=== PATIENT | female | born 1980 | race Caucasian/White ===

== ENCOUNTER 2018-12-22 09:45 | Outpatient (RCR) | payer OTHER, MEDICAID, SELFPAY ==
--- NOTE | 2018-11-03 16:30 | PT.OIE ---
Current Diagnoses Sacrococcygeal disorders, not elsewhere classified (11/03/18) Pelvic and perineal pain (11/03/18) Strain of muscle, fascia and tendon of the posterior muscle group at thigh level, right thigh, sequela (11/03/18) Visit Care Team Role Provider Type Carlo Ayers MD Primary Care Provider Non-Staff Specialty: Medical Address: [address] [place], [address] Email: Isabel Fletcher CNM Attending Provider Non-Staff Specialty: Nursing Address: [address] [place], [address] Email: Physical Therapy Initial Evaluation PT-OP-A Visit Information Start: 11/03/18 10:03 Freq: Status: Active Protocol: Document 11/03/18 10:00 AMB (Rec: 11/04/18 16:18 AMB [email or web address]) Out-Patient Physical Therapy Visit Information Visit Information Visit Type Initial Evaluation Visit Start Time 10:00 Visit Stop Time 10:50 Total Visit Minutes 50 Visit Number 1 PT-OP-B Current Condition Start: 11/03/18 10:03 Freq: Status: Active Protocol: Document 11/03/18 10:00 AMB (Rec: 11/04/18 16:18 AMB [email or web address]) Current Condition History of Current Condition Onset Date May 2018 Current Complaints R sided pain with sitting History of Current Condition Ayanna reports that she fell on her side while she was . She ended up needing an emergency because her placenta ruptured , and so wasn't overly concerned about her right sided pain, but it has been present ever since that fall. 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 She points to the pain as being at the ischial tuberosity, worst with bending forward and sitting. Treatment Goals Patient/Caregiver Goals Bend forward to put her baby in the crib without pain. Sit without pain. Return to running. Personal Factors Other Personal Factors That May Effect Pt lives in [place] ( Therapy/Recovery long drive to get to PT). Pt reports long history of neck pain and L shoulder pain with labrum surgery. PT-OP-C Subjective Start: 11/03/18 10:03 Freq: Status: Active Protocol: Document 11/03/18 10:00 AMB (Rec: 11/04/18 16:18 AMB [email or web address]) OP-PT Pain Assessment Pain Assessment Grid Paper Pain Assessment Grid Completed Yes Location Right Sacrum Intensity 7 Scale Used Numeric (1 - 10) Other Pain Alleviating Factors 2/10 at best, 7/10 at worst with seated PT-OP-F Manual Assessment Start: 11/04/18 15:22 Freq: Status: Active Protocol: Document 11/03/18 10:00 AMB (Rec: 11/04/18 15:56 AMB [email or web address]) Manual Assessments Joint Mobility Assessment Joint Mobility Assessment PAs in L4-5-S1 all painful. PT-OP-J Posture/Palpation/Skin Start: 11/03/18 10:03 Freq: Status: Active Protocol: Document 11/03/18 10:00 AMB (Rec: 11/04/18 15:56 AMB [email or web address]) Posture Evaluation Comments Posture Comments In supine R innominant anterior rotated Palpation Assessment Location One Palpation Details Tenderness over bilateral SI joints and sacrum. Pt points to R ischial tuberosity when asked where she has pain but denies pain with palpation. No tenderness over but does have hard lump probably of scar tissue beneath umbilicus. Diastasis recti of 1 finger width below and above umbilicus. PT-OP-K Range of Motion Start: 11/04/18 15:22 Freq: Status: Active Protocol: Document 11/03/18 10:00 AMB (Rec: 11/04/18 15:56 AMB [email or web address]) Lumbar Spine Range of Motion Lumbar Spine Active Degrees Testing Position Standing Flexion 40 Extension 10 Lateral Flexion Left 15 Lateral Flexion Right 15 Comments pain with lumbar flexion and returning from flexion PT-OP-L Special Tests Start: 11/04/18 15:22 Freq: Status: Active Protocol: Document 11/03/18 10:00 AMB (Rec: 11/04/18 15:56 AMB [email or web address]) Special Tests Lumbar Spine Special Tests Stork Test Test Results negative Standing Flexion Test Results positive Hip Special Tests Scour Test Test Results negative SG Test Results positive PT-OP-M Strength Start: 11/04/18 15:22 Freq: Status: Active Protocol: Document 11/03/18 10:00 AMB (Rec: 11/04/18 15:56 AMB [email or web address]) Hip Strength Hip Manual Muscle Testing Right Flexion (L2) 4 Good Extension (S1) 4- Good- Comments pain with resisted hip extension Left Flexion (L2) 4+ Good+ Extension (S1) 4+ Good+ Knee Strength Knee Manual Muscle Testing Right Flexion (S2) 4- Good- Extension (L3) 5 Normal Comments pain with resisted knee flexion Left Flexion (S2) 5 Normal Extension (L3) 5 Normal PT-OP-T Assessment and Plan Start: 11/03/18 10:03 Freq: Status: Active Protocol: Document 11/03/18 10:00 AMB (Rec: 11/04/18 16:30 AMB [email or web address]) Physical Therapy Assessment Rehab Potential Rehabilitation Potential Good Evaluation Complexity Number of Personal Factors/Comorbidities 1-2 Number of Body Systems Impaired 4 or More Clinical Presentation at Evaluation Evolving Impairments Impairments Pain,Posture,ROM,Strength Goals Three Impairment Strength Short Term Goal (STG) Ayanna will be independent with a HEP for core and pelvic stability. STG Duration 4 weeks Two Impairment pain with movement Short Term Goal (STG) Ayanna will walk for 10 minutes with pain of 3/10 or less. STG Duration 4 weeks Care Home Goal (LTG) Ayanna will bend over to put her daughter in her crib with pain of 3/10 or less. LTG Duration 8 weeks One Impairment sitting Short Term Goal (STG) Ayanna will maintain sitting with neutral pelvic tilt for 10 minutes without lumbar support to decrease her pain. STG Duration 4 weeks Care Home Goal (LTG) Ayanna will drive for 30 minutes with 3/10 pain or less . LTG Duration 8 weeks Assessment Summary Assessment Ayanna attends physical therapy with pain with sitting , forward flexion, and running /walking. When she points to the painful location, she points to her ischial tuberosity, but palpation over the ischial tuberosity was not painful at evaluation. Ayanna reports sharp pain but denies numbness/tingling, painful intercourse, pelvic floor pain, incontinence, or painful bowel movements. She does have sacroiliac dysfunction, with some special tests being positive, some negative. While she has pain with palpation over her SI she does have pain over lumbar spine as well. She will benefit from PT to help resolve her sacral dysfunction and then stabilize her core, given her instability after . Physical Therapy Plan Frequency and Duration Frequency of Treatment 2x/Week Duration of Treatment 8 weeks Plan of Care Start Date 11/03/18 Plan of Care End Date 12/29/18 Therapeutic Interventions Therapeutic Interventions Home Exercise Program,Joint Mobilizations,Manual Therapy, Neuromuscular Re-education, Self-Care/Home Management, Therapeutic Activities, Therapeutic Exercises Modalities Biofeedback,Cold Pack/Ice Massage,Electric Stimulation, Hot Packs,Traction- Mechanical Next Visit Focus/Plan Next Note Type Treatment Note Next Visit Plan correct SI dysfunction, start core stability, assess pelvic floor stability
--- NOTE | 2018-11-03 16:33 | PT.OPPOC ---
Current Diagnoses Sacrococcygeal disorders, not elsewhere classified (11/03/18) Pelvic and perineal pain (11/03/18) Strain of muscle, fascia and tendon of the posterior muscle group at thigh level, right thigh, sequela (11/03/18) Visit Care Team Role Provider Type Carlo Ayers MD Primary Care Provider Non-Staff Specialty: Medical Address: [address] [place], [address] Email: Isabel Fletcher CNM Attending Provider Non-Staff Specialty: Nursing Address: [address] [place], [address] Email: Plan Of Care PT-OP-T Assessment and Plan Start: 11/03/18 10:03 Freq: Status: Active Protocol: Document 11/03/18 10:00 AMB (Rec: 11/04/18 16:30 AMB [email or web address]) Physical Therapy Assessment Rehab Potential Rehabilitation Potential Good Evaluation Complexity Number of Personal Factors/Comorbidities 1-2 Number of Body Systems Impaired 4 or More Clinical Presentation at Evaluation Evolving Impairments Impairments Pain,Posture,ROM,Strength Goals Three Impairment Strength Short Term Goal (STG) Ayanna will be independent with a HEP for core and pelvic stability. STG Duration 4 weeks Two Impairment pain with movement Short Term Goal (STG) Ayanna will walk for 10 minutes with pain of 3/10 or less. STG Duration 4 weeks [employer] Salesperson Goal (LTG) Ayanna will bend over to put her daughter in her crib with pain of 3/10 or less. LTG Duration 8 weeks One Impairment sitting Short Term Goal (STG) Ayanna will maintain sitting with neutral pelvic tilt for 10 minutes without lumbar support to decrease her pain. STG Duration 4 weeks [employer] Salesperson Goal (LTG) Ayanna will drive for 30 minutes with 3/10 pain or less . LTG Duration 8 weeks Assessment Summary Assessment Ayanna attends physical therapy with pain with sitting , forward flexion, and running /walking. When she points to the painful location, she points to her ischial tuberosity, but palpation over the ischial tuberosity was not painful at evaluation. Ayanna reports sharp pain but denies numbness/tingling, painful intercourse, pelvic floor pain, incontinence, or painful bowel movements. She does have sacroiliac dysfunction, with some special tests being positive, some negative. While she has pain with palpation over her SI she does have pain over lumbar spine as well. She will benefit from PT to help resolve her sacral dysfunction and then stabilize her core, given her instability after . Physical Therapy Plan Frequency and Duration Frequency of Treatment 2x/Week Duration of Treatment 8 weeks Plan of Care Start Date 11/03/18 Plan of Care End Date 12/29/18 Therapeutic Interventions Therapeutic Interventions Home Exercise Program,Joint Mobilizations,Manual Therapy, Neuromuscular Re-education, Self-Care/Home Management, Therapeutic Activities, Therapeutic Exercises Modalities Biofeedback,Cold Pack/Ice Massage,Electric Stimulation, Hot Packs,Traction- Mechanical Next Visit Focus/Plan Next Note Type Treatment Note Next Visit Plan correct SI dysfunction, start core stability, assess pelvic floor stability Plan of Care Dates Plan of Care Start Date 11/03/18 Plan of Care End Date 12/29/18 Please Sign and Return: I have reviewed this Plan of Care and certify that the skilled therapy services above are required to meet the patient?s needs. Physician Signature Date Printed Name and Credentials Clinical Instructor Signature Printed Name and Credentials
--- NOTE | 2018-11-09 15:50 | PT.OTN ---
Current Diagnoses Sacrococcygeal disorders, not elsewhere classified (11/09/18) Pelvic and perineal pain (11/09/18) Strain of muscle, fascia and tendon of the posterior muscle group at thigh level, right thigh, sequela (11/09/18) Physical Therapy Treatment Note PT-OP-A Visit Information Start: 11/03/18 10:03 Freq: Status: Active Protocol: Document 11/09/18 09:00 AMB (Rec: 11/09/18 10:59 AMB [email or web address]) Out-Patient Physical Therapy Visit Information Visit Information Visit Type Treatment Note Visit Start Time 09:15 Visit Stop Time 09:45 Total Visit Minutes 30 Visit Number 2 PT-OP-B Current Condition Start: 11/03/18 10:03 Freq: Status: Active Protocol: Document 11/03/18 10:00 AMB (Rec: 11/04/18 16:18 AMB [email or web address]) Current Condition History of Current Condition Onset Date May 2018 Current Complaints R sided pain with sitting History of Current Condition Ayanna reports that she fell on her side while she was . She ended up needing an emergency because her placenta ruptured , and so wasn't overly concerned about her right sided pain, but it has been present ever since that fall. 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 She points to the pain as being at the ischial tuberosity, worst with bending forward and sitting. Treatment Goals Patient/Caregiver Goals Bend forward to put her baby in the crib without pain. Sit without pain. Return to running. Personal Factors Other Personal Factors That May Effect Pt lives in [place] ( Therapy/Recovery long drive to get to PT). Pt reports long history of neck pain and L shoulder pain with labrum surgery. PT-OP-C Subjective Start: 11/03/18 10:03 Freq: Status: Active Protocol: Document 11/09/18 09:00 AMB (Rec: 11/09/18 10:59 AMB [email or web address]) OP-PT Subjective Patient Comments Patient Comments Pt reports she was pretty sore after last visit. she was also sore after going for a 2 mile run a few days ago. PT-OP-F Manual Assessment Start: 11/04/18 15:22 Freq: Status: Active Protocol: Document 11/03/18 10:00 AMB (Rec: 11/04/18 15:56 AMB [email or web address]) Manual Assessments Joint Mobility Assessment Joint Mobility Assessment PAs in L4-5-S1 all painful. PT-OP-J Posture/Palpation/Skin Start: 11/03/18 10:03 Freq: Status: Active Protocol: Document 11/03/18 10:00 AMB (Rec: 11/04/18 15:56 AMB [email or web address]) Posture Evaluation Comments Posture Comments In supine R innominant anterior rotated Palpation Assessment Location One Palpation Details Tenderness over bilateral SI joints and sacrum. Pt points to R ischial tuberosity when asked where she has pain but denies pain with palpation. No tenderness over but does have hard lump probably of scar tissue beneath umbilicus. Diastasis recti of 1 finger width below and above umbilicus. PT-OP-K Range of Motion Start: 11/04/18 15:22 Freq: Status: Active Protocol: Document 11/03/18 10:00 AMB (Rec: 11/04/18 15:56 AMB [email or web address]) Lumbar Spine Range of Motion Lumbar Spine Active Degrees Testing Position Standing Flexion 40 Extension 10 Lateral Flexion Left 15 Lateral Flexion Right 15 Comments pain with lumbar flexion and returning from flexion PT-OP-L Special Tests Start: 11/04/18 15:22 Freq: Status: Active Protocol: Document 11/03/18 10:00 AMB (Rec: 11/04/18 15:56 AMB [email or web address]) Special Tests Lumbar Spine Special Tests Stork Test Test Results negative Standing Flexion Test Results positive Hip Special Tests Scour Test Test Results negative SG Test Results positive PT-OP-M Strength Start: 11/04/18 15:22 Freq: Status: Active Protocol: Document 11/03/18 10:00 AMB (Rec: 11/04/18 15:56 AMB [email or web address]) Hip Strength Hip Manual Muscle Testing Right Flexion (L2) 4 Good Extension (S1) 4- Good- Comments pain with resisted hip extension Left Flexion (L2) 4+ Good+ Extension (S1) 4+ Good+ Knee Strength Knee Manual Muscle Testing Right Flexion (S2) 4- Good- Extension (L3) 5 Normal Comments pain with resisted knee flexion Left Flexion (S2) 5 Normal Extension (L3) 5 Normal PT-OP-Q Treatments Start: 11/03/18 10:03 Freq: Status: Active Protocol: Document 11/09/18 09:15 AMB (Rec: 11/09/18 15:45 AMB [email or web address]) Therapeutic Exercises Sitting Exercises 1 Sitting Exercise Name pelvic tilt Reps/Minutes 10 Other Exercises 3 Other Exercise Name quadruped hip ext Reps/Minutes 10 2 Other Exercise Name quadruped hip ER Reps/Minutes 10 1 Other Exercise Name priscilla pose Reps/Minutes 30x2 Manual Therapy Treatment Soft Tissue Mobilization 1 Body Location sacral stretch Intensity/Depth Superficial Body Position Prone Joint Mobilizations 1 Joint pelvic shotgun Body Position Hooklying Comments x2 PT-OP-T Assessment and Plan Start: 11/03/18 10:03 Freq: Status: Active Protocol: Document 11/09/18 13:00 AMB (Rec: 11/09/18 13:06 AMB [id number]) Physical Therapy Assessment Assessment Summary Assessment Discuss SI belt with rep if pt 's insurance will cover that it did seem beneficial, although the large was too big for her so we would have to try the medium. Pt continues to not have pain with palpation over ischial tuberosity but pain with sacrum. Physical Therapy Plan Next Visit Focus/Plan Next Note Type Treatment Note Next Visit Plan correct SI dysfunction, start core stability, assess pelvic floor stability
--- NOTE | 2018-12-03 11:14 | PT.OTN ---
Current Diagnoses Sacrococcygeal disorders, not elsewhere classified (12/03/18) Pelvic and perineal pain (12/03/18) Strain of muscle, fascia and tendon of the posterior muscle group at thigh level, right thigh, sequela (12/03/18) Physical Therapy Treatment Note PT-OP-A Visit Information Start: 11/03/18 10:03 Freq: Status: Active Protocol: Document 12/03/18 09:00 AMB (Rec: 12/03/18 11:14 AMB [email or web address]) Out-Patient Physical Therapy Visit Information Visit Information Visit Type Treatment Note Visit Start Time 09:05 Visit Stop Time 09:45 Total Visit Minutes 40 Visit Number 3 PT-OP-B Current Condition Start: 11/03/18 10:03 Freq: Status: Active Protocol: Document 11/03/18 10:00 AMB (Rec: 11/04/18 16:18 AMB [email or web address]) Current Condition History of Current Condition Onset Date May 2018 Current Complaints R sided pain with sitting History of Current Condition Ayanna reports that she fell on her side while she was . She ended up needing an emergency because her placenta ruptured , and so wasn't overly concerned about her right sided pain, but it has been present ever since that fall. 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 She points to the pain as being at the ischial tuberosity, worst with bending forward and sitting. Treatment Goals Patient/Caregiver Goals Bend forward to put her baby in the crib without pain. Sit without pain. Return to running. Personal Factors Other Personal Factors That May Effect Pt lives in [place] ( Therapy/Recovery long drive to get to PT). Pt reports long history of neck pain and L shoulder pain with labrum surgery. PT-OP-C Subjective Start: 11/03/18 10:03 Freq: Status: Active Protocol: Document 12/03/18 09:00 AMB (Rec: 12/03/18 11:14 AMB [email or web address]) OP-PT Subjective Patient Comments Patient Comments Pt reports pain has increased significantly over the past few weeks. Her exercises feel good while she does them, but then hurt later. She reports 10/10 pain last week. PT-OP-F Manual Assessment Start: 11/04/18 15:22 Freq: Status: Active Protocol: Document 11/03/18 10:00 AMB (Rec: 11/04/18 15:56 AMB [email or web address]) Manual Assessments Joint Mobility Assessment Joint Mobility Assessment PAs in L4-5-S1 all painful. PT-OP-I Pelvic Floor Start: 11/03/18 10:03 Freq: Status: Active Protocol: Document 12/03/18 09:00 AMB (Rec: 12/03/18 11:14 AMB [email or web address]) Pelvic Floor Assessment Pelvic Clock Pelvic Clock Other Tenderness that radiates to R low back/sacrum with palpation of levator ani and obteratur internus. Tightness on L but no radiation of pain. PT-OP-J Posture/Palpation/Skin Start: 11/03/18 10:03 Freq: Status: Active Protocol: Document 11/03/18 10:00 AMB (Rec: 11/04/18 15:56 AMB [email or web address]) Posture Evaluation Comments Posture Comments In supine R innominant anterior rotated Palpation Assessment Location One Palpation Details Tenderness over bilateral SI joints and sacrum. Pt points to R ischial tuberosity when asked where she has pain but denies pain with palpation. No tenderness over but does have hard lump probably of scar tissue beneath umbilicus. Diastasis recti of 1 finger width below and above umbilicus. PT-OP-K Range of Motion Start: 11/04/18 15:22 Freq: Status: Active Protocol: Document 11/03/18 10:00 AMB (Rec: 11/04/18 15:56 AMB [email or web address]) Lumbar Spine Range of Motion Lumbar Spine Active Degrees Testing Position Standing Flexion 40 Extension 10 Lateral Flexion Left 15 Lateral Flexion Right 15 Comments pain with lumbar flexion and returning from flexion PT-OP-L Special Tests Start: 11/04/18 15:22 Freq: Status: Active Protocol: Document 11/03/18 10:00 AMB (Rec: 11/04/18 15:56 AMB [email or web address]) Special Tests Lumbar Spine Special Tests Stork Test Test Results negative Standing Flexion Test Results positive Hip Special Tests Scour Test Test Results negative SG Test Results positive PT-OP-M Strength Start: 11/04/18 15:22 Freq: Status: Active Protocol: Document 11/03/18 10:00 AMB (Rec: 11/04/18 15:56 AMB [email or web address]) Hip Strength Hip Manual Muscle Testing Right Flexion (L2) 4 Good Extension (S1) 4- Good- Comments pain with resisted hip extension Left Flexion (L2) 4+ Good+ Extension (S1) 4+ Good+ Knee Strength Knee Manual Muscle Testing Right Flexion (S2) 4- Good- Extension (L3) 5 Normal Comments pain with resisted knee flexion Left Flexion (S2) 5 Normal Extension (L3) 5 Normal PT-OP-Q Treatments Start: 11/03/18 10:03 Freq: Status: Active Protocol: Document 12/03/18 09:00 AMB (Rec: 12/03/18 11:14 AMB [email or web address]) Manual Therapy Treatment Soft Tissue Mobilization 2 Body Location R/L obturator internus/levator ani Intensity/Depth Moderate Body Position Hooklying PT-OP-T Assessment and Plan Start: 11/03/18 10:03 Freq: Status: Active Protocol: Document 12/03/18 09:00 AMB (Rec: 12/03/18 11:14 AMB [email or web address]) Physical Therapy Assessment Assessment Summary Assessment Pt reports improvement in pain sx after manual therapy at R obterator internus, but not full resolution. Continues to have SI pain that at times can radiate into R leg/foot. Try medium SI belt next visit. Physical Therapy Plan Next Visit Focus/Plan Next Note Type Treatment Note Next Visit Plan correct SI dysfunction, follow up on pelvic floor dysfunction
--- NOTE | 2018-12-06 15:16 | PT.OTN ---
Current Diagnoses Sacrococcygeal disorders, not elsewhere classified (12/06/18) Pelvic and perineal pain (12/06/18) Strain of muscle, fascia and tendon of the posterior muscle group at thigh level, right thigh, sequela (12/06/18) Physical Therapy Treatment Note PT-OP-A Visit Information Start: 11/03/18 10:03 Freq: Status: Active Protocol: Document 12/06/18 09:45 AMB (Rec: 12/06/18 15:16 AMB [email or web address]) Out-Patient Physical Therapy Visit Information Visit Information Visit Type Treatment Note Visit Start Time 09:45 Visit Stop Time 10:30 Total Visit Minutes 45 Visit Number 4 PT-OP-B Current Condition Start: 11/03/18 10:03 Freq: Status: Active Protocol: Document 11/03/18 10:00 AMB (Rec: 11/04/18 16:18 AMB [email or web address]) Current Condition History of Current Condition Onset Date May 2018 Current Complaints R sided pain with sitting History of Current Condition Ayanna reports that she fell on her side while she was . She ended up needing an emergency because her placenta ruptured , and so wasn't overly concerned about her right sided pain, but it has been present ever since that fall. 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 She points to the pain as being at the ischial tuberosity, worst with bending forward and sitting. Treatment Goals Patient/Caregiver Goals Bend forward to put her baby in the crib without pain. Sit without pain. Return to running. Personal Factors Other Personal Factors That May Effect Pt lives in [place] ( Therapy/Recovery long drive to get to PT). Pt reports long history of neck pain and L shoulder pain with labrum surgery. PT-OP-C Subjective Start: 11/03/18 10:03 Freq: Status: Active Protocol: Document 12/06/18 09:45 AMB (Rec: 12/06/18 15:16 AMB [email or web address]) OP-PT Subjective Patient Comments Patient Comments Pt felt slightly better after last PT visit, on her period today and does not want to do internal work. PT-OP-F Manual Assessment Start: 11/04/18 15:22 Freq: Status: Active Protocol: Document 11/03/18 10:00 AMB (Rec: 11/04/18 15:56 AMB [email or web address]) Manual Assessments Joint Mobility Assessment Joint Mobility Assessment PAs in L4-5-S1 all painful. PT-OP-I Pelvic Floor Start: 11/03/18 10:03 Freq: Status: Active Protocol: Document 12/03/18 09:00 AMB (Rec: 12/03/18 11:14 AMB [email or web address]) Pelvic Floor Assessment Pelvic Clock Pelvic Clock Other Tenderness that radiates to R low back/sacrum with palpation of levator ani and obteratur internus. Tightness on L but no radiation of pain. PT-OP-J Posture/Palpation/Skin Start: 11/03/18 10:03 Freq: Status: Active Protocol: Document 11/03/18 10:00 AMB (Rec: 11/04/18 15:56 AMB [email or web address]) Posture Evaluation Comments Posture Comments In supine R innominant anterior rotated Palpation Assessment Location One Palpation Details Tenderness over bilateral SI joints and sacrum. Pt points to R ischial tuberosity when asked where she has pain but denies pain with palpation. No tenderness over but does have hard lump probably of scar tissue beneath umbilicus. Diastasis recti of 1 finger width below and above umbilicus. PT-OP-K Range of Motion Start: 11/04/18 15:22 Freq: Status: Active Protocol: Document 11/03/18 10:00 AMB (Rec: 11/04/18 15:56 AMB [email or web address]) Lumbar Spine Range of Motion Lumbar Spine Active Degrees Testing Position Standing Flexion 40 Extension 10 Lateral Flexion Left 15 Lateral Flexion Right 15 Comments pain with lumbar flexion and returning from flexion PT-OP-L Special Tests Start: 11/04/18 15:22 Freq: Status: Active Protocol: Document 11/03/18 10:00 AMB (Rec: 11/04/18 15:56 AMB [email or web address]) Special Tests Lumbar Spine Special Tests Stork Test Test Results negative Standing Flexion Test Results positive Hip Special Tests Scour Test Test Results negative SG Test Results positive PT-OP-M Strength Start: 11/04/18 15:22 Freq: Status: Active Protocol: Document 11/03/18 10:00 AMB (Rec: 11/04/18 15:56 AMB [email or web address]) Hip Strength Hip Manual Muscle Testing Right Flexion (L2) 4 Good Extension (S1) 4- Good- Comments pain with resisted hip extension Left Flexion (L2) 4+ Good+ Extension (S1) 4+ Good+ Knee Strength Knee Manual Muscle Testing Right Flexion (S2) 4- Good- Extension (L3) 5 Normal Comments pain with resisted knee flexion Left Flexion (S2) 5 Normal Extension (L3) 5 Normal PT-OP-Q Treatments Start: 11/03/18 10:03 Freq: Status: Active Protocol: Document 12/06/18 09:45 AMB (Rec: 12/06/18 15:16 AMB [email or web address]) Therapeutic Exercises Supine Exercises 1 Supine Exercise Name active sciatic glide Reps/Minutes 10 Manual Therapy Treatment Soft Tissue Mobilization 4 Body Location piriformis R Intensity/Depth Moderate 3 Body Location R hip flexor release Intensity/Depth Moderate 1 Body Location sacral stretch Intensity/Depth Superficial Body Position Prone Manual Traction straight leg distraction Body Position Supine Comments R leg PT-OP-T Assessment and Plan Start: 11/03/18 10:03 Freq: Status: Active Protocol: Document 12/06/18 09:45 AMB (Rec: 12/06/18 15:16 AMB [email or web address]) Physical Therapy Assessment Assessment Summary Assessment Pt felt improvement in sx during manual, but once getting back up into standing she felt about the same. 8/10 pain today, vended SI belt, encouraged pt in home sciatic nerve gliding. Physical Therapy Plan Next Visit Focus/Plan Next Note Type Treatment Note Next Visit Plan correct SI dysfunction, follow up on pelvic floor dysfunction
--- NOTE | 2018-12-08 16:11 | PT.OTN ---
Current Diagnoses Sacrococcygeal disorders, not elsewhere classified (12/08/18) Pelvic and perineal pain (12/08/18) Strain of muscle, fascia and tendon of the posterior muscle group at thigh level, right thigh, sequela (12/08/18) Physical Therapy Treatment Note PT-OP-A Visit Information Start: 11/03/18 10:03 Freq: Status: Active Protocol: Document 12/08/18 09:45 AMB (Rec: 12/08/18 12:56 AMB [email or web address]) Out-Patient Physical Therapy Visit Information Visit Information Visit Type Treatment Note Visit Start Time 09:45 Visit Stop Time 10:30 Total Visit Minutes 45 Visit Number 5 PT-OP-B Current Condition Start: 11/03/18 10:03 Freq: Status: Active Protocol: Document 11/03/18 10:00 AMB (Rec: 11/04/18 16:18 AMB [email or web address]) Current Condition History of Current Condition Onset Date May 2018 Current Complaints R sided pain with sitting History of Current Condition Ayanna reports that she fell on her side while she was . She ended up needing an emergency because her placenta ruptured , and so wasn't overly concerned about her right sided pain, but it has been present ever since that fall. 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 She points to the pain as being at the ischial tuberosity, worst with bending forward and sitting. Treatment Goals Patient/Caregiver Goals Bend forward to put her baby in the crib without pain. Sit without pain. Return to running. Personal Factors Other Personal Factors That May Effect Pt lives in [place] ( Therapy/Recovery long drive to get to PT). Pt reports long history of neck pain and L shoulder pain with labrum surgery. PT-OP-C Subjective Start: 11/03/18 10:03 Freq: Status: Active Protocol: Document 12/08/18 09:45 AMB (Rec: 12/08/18 12:56 AMB [email or web address]) OP-PT Subjective Patient Comments Patient Comments Pt reports she is planning on going to the chiropractor tomorrow. PT-OP-F Manual Assessment Start: 11/04/18 15:22 Freq: Status: Active Protocol: Document 11/03/18 10:00 AMB (Rec: 11/04/18 15:56 AMB [email or web address]) Manual Assessments Joint Mobility Assessment Joint Mobility Assessment PAs in L4-5-S1 all painful. PT-OP-I Pelvic Floor Start: 11/03/18 10:03 Freq: Status: Active Protocol: Document 12/03/18 09:00 AMB (Rec: 12/03/18 11:14 AMB [email or web address]) Pelvic Floor Assessment Pelvic Clock Pelvic Clock Other Tenderness that radiates to R low back/sacrum with palpation of levator ani and obteratur internus. Tightness on L but no radiation of pain. PT-OP-J Posture/Palpation/Skin Start: 11/03/18 10:03 Freq: Status: Active Protocol: Document 11/03/18 10:00 AMB (Rec: 11/04/18 15:56 AMB [email or web address]) Posture Evaluation Comments Posture Comments In supine R innominant anterior rotated Palpation Assessment Location One Palpation Details Tenderness over bilateral SI joints and sacrum. Pt points to R ischial tuberosity when asked where she has pain but denies pain with palpation. No tenderness over but does have hard lump probably of scar tissue beneath umbilicus. Diastasis recti of 1 finger width below and above umbilicus. PT-OP-K Range of Motion Start: 11/04/18 15:22 Freq: Status: Active Protocol: Document 11/03/18 10:00 AMB (Rec: 11/04/18 15:56 AMB [email or web address]) Lumbar Spine Range of Motion Lumbar Spine Active Degrees Testing Position Standing Flexion 40 Extension 10 Lateral Flexion Left 15 Lateral Flexion Right 15 Comments pain with lumbar flexion and returning from flexion PT-OP-L Special Tests Start: 11/04/18 15:22 Freq: Status: Active Protocol: Document 11/03/18 10:00 AMB (Rec: 11/04/18 15:56 AMB [email or web address]) Special Tests Lumbar Spine Special Tests Stork Test Test Results negative Standing Flexion Test Results positive Hip Special Tests Scour Test Test Results negative SG Test Results positive PT-OP-M Strength Start: 11/04/18 15:22 Freq: Status: Active Protocol: Document 11/03/18 10:00 AMB (Rec: 11/04/18 15:56 AMB [email or web address]) Hip Strength Hip Manual Muscle Testing Right Flexion (L2) 4 Good Extension (S1) 4- Good- Comments pain with resisted hip extension Left Flexion (L2) 4+ Good+ Extension (S1) 4+ Good+ Knee Strength Knee Manual Muscle Testing Right Flexion (S2) 4- Good- Extension (L3) 5 Normal Comments pain with resisted knee flexion Left Flexion (S2) 5 Normal Extension (L3) 5 Normal PT-OP-Q Treatments Start: 11/03/18 10:03 Freq: Status: Active Protocol: Document 12/08/18 09:45 AMB (Rec: 12/08/18 16:11 AMB [email or web address]) Therapeutic Exercises Supine Exercises 1 Supine Exercise Name active sciatic glide Reps/Minutes 10 Other Exercises 3 Other Exercise Name quadruped cat cow Comments with TrA stab 1 Other Exercise Name priscilla pose Reps/Minutes 30x2 Manual Therapy Treatment Soft Tissue Mobilization 5 Body Location R paraspinals/QL Mobilization Type Myofascial Release,Trigger Point Release Intensity/Depth Moderate Body Position Supine 3 Body Location R hip flexor release Intensity/Depth Moderate 1 Body Location sacral stretch Intensity/Depth Superficial Body Position Prone Joint Mobilizations 1 Joint pelvic shotgun Body Position Hooklying Comments x2 PT-OP-T Assessment and Plan Start: 11/03/18 10:03 Freq: Status: Active Protocol: Document 12/08/18 09:45 AMB (Rec: 12/08/18 16:11 AMB [email or web address]) Physical Therapy Assessment Assessment Summary Assessment Ayanna is continuing to be frustrated with her pain. Did not repeat internal work as she was still uncomfortable with that on her menstrual cycle. Did benefit from release of her right paraspinals, will need to recheck QL, as this was radiating down into SI. Physical Therapy Plan Next Visit Focus/Plan Next Note Type Treatment Note Next Visit Plan correct SI dysfunction, follow up on pelvic floor dysfunction
--- NOTE | 2018-12-14 12:43 | PT.OTN ---
Current Diagnoses Sacrococcygeal disorders, not elsewhere classified (12/13/18) Pelvic and perineal pain (12/13/18) Strain of muscle, fascia and tendon of the posterior muscle group at thigh level, right thigh, sequela (12/13/18) Physical Therapy Treatment Note PT-OP-A Visit Information Start: 11/03/18 10:03 Freq: Status: Active Protocol: Document 12/13/18 09:45 AMB (Rec: 12/14/18 07:31 AMB [email or web address]) Out-Patient Physical Therapy Visit Information Visit Information Visit Type Treatment Note Visit Start Time 09:45 Visit Stop Time 10:30 Total Visit Minutes 45 Visit Number 6 PT-OP-B Current Condition Start: 11/03/18 10:03 Freq: Status: Active Protocol: Document 11/03/18 10:00 AMB (Rec: 11/04/18 16:18 AMB [email or web address]) Current Condition History of Current Condition Onset Date May 2018 Current Complaints R sided pain with sitting History of Current Condition Ayanna reports that she fell on her side while she was . She ended up needing an emergency because her placenta ruptured , and so wasn't overly concerned about her right sided pain, but it has been present ever since that fall. 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 She points to the pain as being at the ischial tuberosity, worst with bending forward and sitting. Treatment Goals Patient/Caregiver Goals Bend forward to put her baby in the crib without pain. Sit without pain. Return to running. Personal Factors Other Personal Factors That May Effect Pt lives in [place] ( Therapy/Recovery long drive to get to PT). Pt reports long history of neck pain and L shoulder pain with labrum surgery. PT-OP-C Subjective Start: 11/03/18 10:03 Freq: Status: Active Protocol: Document 12/13/18 09:45 AMB (Rec: 12/14/18 07:31 AMB [email or web address]) OP-PT Subjective Patient Comments Patient Comments Pt is getting first chriopractor treatment today, going to see her X-rays. Reports she is feeling a bit better, but also reports 7/10 pain. PT-OP-F Manual Assessment Start: 11/04/18 15:22 Freq: Status: Active Protocol: Document 11/03/18 10:00 AMB (Rec: 11/04/18 15:56 AMB [email or web address]) Manual Assessments Joint Mobility Assessment Joint Mobility Assessment PAs in L4-5-S1 all painful. PT-OP-I Pelvic Floor Start: 11/03/18 10:03 Freq: Status: Active Protocol: Document 12/03/18 09:00 AMB (Rec: 12/03/18 11:14 AMB [email or web address]) Pelvic Floor Assessment Pelvic Clock Pelvic Clock Other Tenderness that radiates to R low back/sacrum with palpation of levator ani and obteratur internus. Tightness on L but no radiation of pain. PT-OP-J Posture/Palpation/Skin Start: 11/03/18 10:03 Freq: Status: Active Protocol: Document 11/03/18 10:00 AMB (Rec: 11/04/18 15:56 AMB [email or web address]) Posture Evaluation Comments Posture Comments In supine R innominant anterior rotated Palpation Assessment Location One Palpation Details Tenderness over bilateral SI joints and sacrum. Pt points to R ischial tuberosity when asked where she has pain but denies pain with palpation. No tenderness over but does have hard lump probably of scar tissue beneath umbilicus. Diastasis recti of 1 finger width below and above umbilicus. PT-OP-K Range of Motion Start: 11/04/18 15:22 Freq: Status: Active Protocol: Document 11/03/18 10:00 AMB (Rec: 11/04/18 15:56 AMB [email or web address]) Lumbar Spine Range of Motion Lumbar Spine Active Degrees Testing Position Standing Flexion 40 Extension 10 Lateral Flexion Left 15 Lateral Flexion Right 15 Comments pain with lumbar flexion and returning from flexion PT-OP-L Special Tests Start: 11/04/18 15:22 Freq: Status: Active Protocol: Document 11/03/18 10:00 AMB (Rec: 11/04/18 15:56 AMB [email or web address]) Special Tests Lumbar Spine Special Tests Stork Test Test Results negative Standing Flexion Test Results positive Hip Special Tests Scour Test Test Results negative SG Test Results positive PT-OP-M Strength Start: 11/04/18 15:22 Freq: Status: Active Protocol: Document 11/03/18 10:00 AMB (Rec: 11/04/18 15:56 AMB [email or web address]) Hip Strength Hip Manual Muscle Testing Right Flexion (L2) 4 Good Extension (S1) 4- Good- Comments pain with resisted hip extension Left Flexion (L2) 4+ Good+ Extension (S1) 4+ Good+ Knee Strength Knee Manual Muscle Testing Right Flexion (S2) 4- Good- Extension (L3) 5 Normal Comments pain with resisted knee flexion Left Flexion (S2) 5 Normal Extension (L3) 5 Normal PT-OP-Q Treatments Start: 11/03/18 10:03 Freq: Status: Active Protocol: Document 12/13/18 09:45 AMB (Rec: 12/14/18 12:42 AMB [email or web address]) Therapeutic Exercises Supine Exercises 3 Supine Exercise Name piriformis stretch Reps/Minutes 30x2 2 Supine Exercise Name lower trunk rotation Reps/Minutes 10 1 Supine Exercise Name active sciatic glide Reps/Minutes 10 Sidelying Exercises 1 Sidelying Exercise Name QL stretch Reps/Minutes 30x2 Other Exercises 3 Other Exercise Name quadruped cat cow Comments with TrA stab 1 Other Exercise Name priscilla pose Reps/Minutes 30x2 Manual Therapy Treatment Soft Tissue Mobilization 5 Body Location R paraspinals/QL Mobilization Type Myofascial Release,Trigger Point Release Intensity/Depth Moderate Body Position Supine Manual Traction straight leg distraction Body Position Supine Comments R leg PT-OP-T Assessment and Plan Start: 11/03/18 10:03 Freq: Status: Active Protocol: Document 12/13/18 09:45 AMB (Rec: 12/14/18 07:31 AMB [email or web address]) Physical Therapy Assessment Assessment Summary Assessment Ayanna still needs to work on QL, as that was quite painful and likely a contributing factor to her difficulty with sidebending. Physical Therapy Plan Next Visit Focus/Plan Next Note Type Treatment Note Next Visit Plan correct SI dysfunction, follow up on pelvic floor dysfunction
--- NOTE | 2018-12-15 11:24 | PT.OTN ---
Current Diagnoses Sacrococcygeal disorders, not elsewhere classified (12/15/18) Pelvic and perineal pain (12/15/18) Strain of muscle, fascia and tendon of the posterior muscle group at thigh level, right thigh, sequela (12/15/18) Physical Therapy Treatment Note PT-OP-A Visit Information Start: 11/03/18 10:03 Freq: Status: Active Protocol: Document 12/15/18 11:14 AMB (Rec: 12/15/18 11:24 AMB [email or web address]) Out-Patient Physical Therapy Visit Information Visit Information Visit Type Treatment Note Visit Start Time 11:15 Visit Stop Time 12:00 Total Visit Minutes 45 Visit Number 7 PT-OP-B Current Condition Start: 11/03/18 10:03 Freq: Status: Active Protocol: Document 11/03/18 10:00 AMB (Rec: 11/04/18 16:18 AMB [email or web address]) Current Condition History of Current Condition Onset Date May 2018 Current Complaints R sided pain with sitting History of Current Condition Ayanna reports that she fell on her side while she was . She ended up needing an emergency because her placenta ruptured , and so wasn't overly concerned about her right sided pain, but it has been present ever since that fall. 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 She points to the pain as being at the ischial tuberosity, worst with bending forward and sitting. Treatment Goals Patient/Caregiver Goals Bend forward to put her baby in the crib without pain. Sit without pain. Return to running. Personal Factors Other Personal Factors That May Effect Pt lives in [place] ( Therapy/Recovery long drive to get to PT). Pt reports long history of neck pain and L shoulder pain with labrum surgery. PT-OP-C Subjective Start: 11/03/18 10:03 Freq: Status: Active Protocol: Document 12/15/18 11:14 AMB (Rec: 12/15/18 11:24 AMB [email or web address]) OP-PT Subjective Patient Comments Patient Comments Pt is feeling better today after chiropractic treatment on Thursday. Feels that she is in a better spot, but it would be easy to fall back into old postural habits. PT-OP-F Manual Assessment Start: 11/04/18 15:22 Freq: Status: Active Protocol: Document 11/03/18 10:00 AMB (Rec: 11/04/18 15:56 AMB [email or web address]) Manual Assessments Joint Mobility Assessment Joint Mobility Assessment PAs in L4-5-S1 all painful. PT-OP-I Pelvic Floor Start: 11/03/18 10:03 Freq: Status: Active Protocol: Document 12/03/18 09:00 AMB (Rec: 12/03/18 11:14 AMB [email or web address]) Pelvic Floor Assessment Pelvic Clock Pelvic Clock Other Tenderness that radiates to R low back/sacrum with palpation of levator ani and obteratur internus. Tightness on L but no radiation of pain. PT-OP-J Posture/Palpation/Skin Start: 11/03/18 10:03 Freq: Status: Active Protocol: Document 11/03/18 10:00 AMB (Rec: 11/04/18 15:56 AMB [email or web address]) Posture Evaluation Comments Posture Comments In supine R innominant anterior rotated Palpation Assessment Location One Palpation Details Tenderness over bilateral SI joints and sacrum. Pt points to R ischial tuberosity when asked where she has pain but denies pain with palpation. No tenderness over but does have hard lump probably of scar tissue beneath umbilicus. Diastasis recti of 1 finger width below and above umbilicus. PT-OP-K Range of Motion Start: 11/04/18 15:22 Freq: Status: Active Protocol: Document 11/03/18 10:00 AMB (Rec: 11/04/18 15:56 AMB [email or web address]) Lumbar Spine Range of Motion Lumbar Spine Active Degrees Testing Position Standing Flexion 40 Extension 10 Lateral Flexion Left 15 Lateral Flexion Right 15 Comments pain with lumbar flexion and returning from flexion PT-OP-L Special Tests Start: 11/04/18 15:22 Freq: Status: Active Protocol: Document 11/03/18 10:00 AMB (Rec: 11/04/18 15:56 AMB [email or web address]) Special Tests Lumbar Spine Special Tests Stork Test Test Results negative Standing Flexion Test Results positive Hip Special Tests Scour Test Test Results negative SG Test Results positive PT-OP-M Strength Start: 11/04/18 15:22 Freq: Status: Active Protocol: Document 11/03/18 10:00 AMB (Rec: 11/04/18 15:56 AMB [email or web address]) Hip Strength Hip Manual Muscle Testing Right Flexion (L2) 4 Good Extension (S1) 4- Good- Comments pain with resisted hip extension Left Flexion (L2) 4+ Good+ Extension (S1) 4+ Good+ Knee Strength Knee Manual Muscle Testing Right Flexion (S2) 4- Good- Extension (L3) 5 Normal Comments pain with resisted knee flexion Left Flexion (S2) 5 Normal Extension (L3) 5 Normal PT-OP-Q Treatments Start: 11/03/18 10:03 Freq: Status: Active Protocol: Document 12/15/18 11:14 AMB (Rec: 12/15/18 11:24 AMB [email or web address]) Therapeutic Exercises Supine Exercises 5 Supine Exercise Name hip flexor stretch- R Reps/Minutes 30x2 4 Supine Exercise Name supine march Comments with TrA/ pelvic floor stab 2 Supine Exercise Name lower trunk rotation Reps/Minutes 10 Sitting Exercises 1 Sitting Exercise Name on 65cm ball Comments TKE, april with alt UE, hip abd #3 band, hip add isometric PT-OP-T Assessment and Plan Start: 11/03/18 10:03 Freq: Status: Active Protocol: Document 12/15/18 11:14 AMB (Rec: 12/15/18 11:24 AMB [email or web address]) Physical Therapy Assessment Assessment Summary Assessment Ayanna tolerated stabilization well, but continues to have weakness in her right leg in comparison to her left. Physical Therapy Plan Next Visit Focus/Plan Next Note Type Treatment Note Next Visit Plan Stabilization training
--- NOTE | 2018-12-20 12:58 | PT.OTN ---
Current Diagnoses Sacrococcygeal disorders, not elsewhere classified (12/20/18) Pelvic and perineal pain (12/20/18) Strain of muscle, fascia and tendon of the posterior muscle group at thigh level, right thigh, sequela (12/20/18) Physical Therapy Treatment Note PT-OP-A Visit Information Start: 11/03/18 10:03 Freq: Status: Active Protocol: Document 12/20/18 09:45 AMB (Rec: 12/20/18 12:58 AMB [email or web address]) Out-Patient Physical Therapy Visit Information Visit Information Visit Type Treatment Note Visit Start Time 09:45 Visit Stop Time 10:30 Total Visit Minutes 45 Visit Number 8 PT-OP-B Current Condition Start: 11/03/18 10:03 Freq: Status: Active Protocol: Document 11/03/18 10:00 AMB (Rec: 11/04/18 16:18 AMB [email or web address]) Current Condition History of Current Condition Onset Date May 2018 Current Complaints R sided pain with sitting History of Current Condition Ayanna reports that she fell on her side while she was . She ended up needing an emergency because her placenta ruptured , and so wasn't overly concerned about her right sided pain, but it has been present ever since that fall. 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 She points to the pain as being at the ischial tuberosity, worst with bending forward and sitting. Treatment Goals Patient/Caregiver Goals Bend forward to put her baby in the crib without pain. Sit without pain. Return to running. Personal Factors Other Personal Factors That May Effect Pt lives in [place] ( Therapy/Recovery long drive to get to PT). Pt reports long history of neck pain and L shoulder pain with labrum surgery. PT-OP-C Subjective Start: 11/03/18 10:03 Freq: Status: Active Protocol: Document 12/20/18 09:45 AMB (Rec: 12/20/18 12:58 AMB [email or web address]) OP-PT Subjective Patient Comments Patient Comments Pt reports 6/10 pain in sacrum and R anterior hip today. PT-OP-F Manual Assessment Start: 11/04/18 15:22 Freq: Status: Active Protocol: Document 11/03/18 10:00 AMB (Rec: 11/04/18 15:56 AMB [email or web address]) Manual Assessments Joint Mobility Assessment Joint Mobility Assessment PAs in L4-5-S1 all painful. PT-OP-I Pelvic Floor Start: 11/03/18 10:03 Freq: Status: Active Protocol: Document 12/03/18 09:00 AMB (Rec: 12/03/18 11:14 AMB [email or web address]) Pelvic Floor Assessment Pelvic Clock Pelvic Clock Other Tenderness that radiates to R low back/sacrum with palpation of levator ani and obteratur internus. Tightness on L but no radiation of pain. PT-OP-J Posture/Palpation/Skin Start: 11/03/18 10:03 Freq: Status: Active Protocol: Document 11/03/18 10:00 AMB (Rec: 11/04/18 15:56 AMB [email or web address]) Posture Evaluation Comments Posture Comments In supine R innominant anterior rotated Palpation Assessment Location One Palpation Details Tenderness over bilateral SI joints and sacrum. Pt points to R ischial tuberosity when asked where she has pain but denies pain with palpation. No tenderness over but does have hard lump probably of scar tissue beneath umbilicus. Diastasis recti of 1 finger width below and above umbilicus. PT-OP-K Range of Motion Start: 11/04/18 15:22 Freq: Status: Active Protocol: Document 11/03/18 10:00 AMB (Rec: 11/04/18 15:56 AMB [email or web address]) Lumbar Spine Range of Motion Lumbar Spine Active Degrees Testing Position Standing Flexion 40 Extension 10 Lateral Flexion Left 15 Lateral Flexion Right 15 Comments pain with lumbar flexion and returning from flexion PT-OP-L Special Tests Start: 11/04/18 15:22 Freq: Status: Active Protocol: Document 11/03/18 10:00 AMB (Rec: 11/04/18 15:56 AMB [email or web address]) Special Tests Lumbar Spine Special Tests Stork Test Test Results negative Standing Flexion Test Results positive Hip Special Tests Scour Test Test Results negative SG Test Results positive PT-OP-M Strength Start: 11/04/18 15:22 Freq: Status: Active Protocol: Document 11/03/18 10:00 AMB (Rec: 11/04/18 15:56 AMB [email or web address]) Hip Strength Hip Manual Muscle Testing Right Flexion (L2) 4 Good Extension (S1) 4- Good- Comments pain with resisted hip extension Left Flexion (L2) 4+ Good+ Extension (S1) 4+ Good+ Knee Strength Knee Manual Muscle Testing Right Flexion (S2) 4- Good- Extension (L3) 5 Normal Comments pain with resisted knee flexion Left Flexion (S2) 5 Normal Extension (L3) 5 Normal PT-OP-Q Treatments Start: 11/03/18 10:03 Freq: Status: Active Protocol: Document 12/20/18 09:45 AMB (Rec: 12/20/18 12:58 AMB [email or web address]) Cardio Equipment Recumbent Elliptical (SnowShoe Stamp) Duration (Minutes) 5 Resistance 4 Therapeutic Exercises Supine Exercises 5 Supine Exercise Name hip flexor stretch- R Reps/Minutes 30x2 4 Supine Exercise Name supine april Comments with TrA/ pelvic floor stab 3 Supine Exercise Name table top and single leg lower Reps/Minutes 10 2 Supine Exercise Name lower trunk rotation Reps/Minutes 10 1 Supine Exercise Name segmental bridge Reps/Minutes 30 Sidelying Exercises 1 Sidelying Exercise Name side plank Comments 15x6 Manual Therapy Treatment Manual Traction straight leg distraction Details L Body Position Supine PT-OP-T Assessment and Plan Start: 11/03/18 10:03 Freq: Status: Active Protocol: Document 12/20/18 09:45 AMB (Rec: 12/20/18 12:58 AMB [email or web address]) Physical Therapy Assessment Assessment Summary Assessment Ayanna is feeling weakness in R core- difficulty feeling lower abdominals. Physical Therapy Plan Next Visit Focus/Plan Next Note Type Treatment Note Next Visit Plan Stabilization training, focus on the R
--- NOTE | 2018-12-22 14:32 | PT.OTN ---
Current Diagnoses Sacrococcygeal disorders, not elsewhere classified (12/22/18) Pelvic and perineal pain (12/22/18) Strain of muscle, fascia and tendon of the posterior muscle group at thigh level, right thigh, sequela (12/22/18) Physical Therapy Treatment Note PT-OP-A Visit Information Start: 11/03/18 10:03 Freq: Status: Active Protocol: Document 12/22/18 09:45 AMB (Rec: 12/22/18 13:35 AMB [email or web address]) Out-Patient Physical Therapy Visit Information Visit Information Visit Type Treatment Note Visit Start Time 09:45 Visit Stop Time 10:30 Total Visit Minutes 45 Visit Number 9 PT-OP-B Current Condition Start: 11/03/18 10:03 Freq: Status: Active Protocol: Document 11/03/18 10:00 AMB (Rec: 11/04/18 16:18 AMB [email or web address]) Current Condition History of Current Condition Onset Date May 2018 Current Complaints R sided pain with sitting History of Current Condition Ayanna reports that she fell on her side while she was . She ended up needing an emergency because her placenta ruptured , and so wasn't overly concerned about her right sided pain, but it has been present ever since that fall. 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 She points to the pain as being at the ischial tuberosity, worst with bending forward and sitting. Treatment Goals Patient/Caregiver Goals Bend forward to put her baby in the crib without pain. Sit without pain. Return to running. Personal Factors Other Personal Factors That May Effect Pt lives in [place] ( Therapy/Recovery long drive to get to PT). Pt reports long history of neck pain and L shoulder pain with labrum surgery. PT-OP-C Subjective Start: 11/03/18 10:03 Freq: Status: Active Protocol: Document 12/22/18 09:45 AMB (Rec: 12/25/18 14:32 AMB [email or web address]) OP-PT Subjective Patient Comments Patient Comments Pt overall feeling pretty good today, is going to [place] next week and is going to be driving. PT-OP-F Manual Assessment Start: 11/04/18 15:22 Freq: Status: Active Protocol: Document 11/03/18 10:00 AMB (Rec: 11/04/18 15:56 AMB [email or web address]) Manual Assessments Joint Mobility Assessment Joint Mobility Assessment PAs in L4-5-S1 all painful. PT-OP-I Pelvic Floor Start: 11/03/18 10:03 Freq: Status: Active Protocol: Document 12/03/18 09:00 AMB (Rec: 12/03/18 11:14 AMB [email or web address]) Pelvic Floor Assessment Pelvic Clock Pelvic Clock Other Tenderness that radiates to R low back/sacrum with palpation of levator ani and obteratur internus. Tightness on L but no radiation of pain. PT-OP-J Posture/Palpation/Skin Start: 11/03/18 10:03 Freq: Status: Active Protocol: Document 11/03/18 10:00 AMB (Rec: 11/04/18 15:56 AMB [email or web address]) Posture Evaluation Comments Posture Comments In supine R innominant anterior rotated Palpation Assessment Location One Palpation Details Tenderness over bilateral SI joints and sacrum. Pt points to R ischial tuberosity when asked where she has pain but denies pain with palpation. No tenderness over but does have hard lump probably of scar tissue beneath umbilicus. Diastasis recti of 1 finger width below and above umbilicus. PT-OP-K Range of Motion Start: 11/04/18 15:22 Freq: Status: Active Protocol: Document 11/03/18 10:00 AMB (Rec: 11/04/18 15:56 AMB [email or web address]) Lumbar Spine Range of Motion Lumbar Spine Active Degrees Testing Position Standing Flexion 40 Extension 10 Lateral Flexion Left 15 Lateral Flexion Right 15 Comments pain with lumbar flexion and returning from flexion PT-OP-L Special Tests Start: 11/04/18 15:22 Freq: Status: Active Protocol: Document 11/03/18 10:00 AMB (Rec: 11/04/18 15:56 AMB [email or web address]) Special Tests Lumbar Spine Special Tests Stork Test Test Results negative Standing Flexion Test Results positive Hip Special Tests Scour Test Test Results negative SG Test Results positive PT-OP-M Strength Start: 11/04/18 15:22 Freq: Status: Active Protocol: Document 11/03/18 10:00 AMB (Rec: 11/04/18 15:56 AMB [email or web address]) Hip Strength Hip Manual Muscle Testing Right Flexion (L2) 4 Good Extension (S1) 4- Good- Comments pain with resisted hip extension Left Flexion (L2) 4+ Good+ Extension (S1) 4+ Good+ Knee Strength Knee Manual Muscle Testing Right Flexion (S2) 4- Good- Extension (L3) 5 Normal Comments pain with resisted knee flexion Left Flexion (S2) 5 Normal Extension (L3) 5 Normal PT-OP-Q Treatments Start: 11/03/18 10:03 Freq: Status: Active Protocol: Document 12/22/18 09:45 AMB (Rec: 12/25/18 14:32 AMB [email or web address]) Cardio Equipment Elliptical Duration (Minutes) 5 Resistance 5 Therapeutic Exercises Supine Exercises 5 Supine Exercise Name hip flexor stretch- R Reps/Minutes 30x2 4 Supine Exercise Name supine march Comments with TrA/ pelvic floor stab 3 Supine Exercise Name table top and single leg lower Reps/Minutes 10 Sidelying Exercises 3 Sidelying Exercise Name hip abduction SLR Comments 2x10 2 Sidelying Exercise Name clamshell Resistance #3 t band Comments 2x10 Standing Exercises 1 Standing Exercise Name partial squat Reps/Minutes 10 Comments focus on TA PT-OP-T Assessment and Plan Start: 11/03/18 10:03 Freq: Status: Active Protocol: Document 12/22/18 09:45 AMB (Rec: 12/25/18 14:32 AMB [email or web address]) Physical Therapy Assessment Assessment Summary Assessment Ayanna is tolerating more strengthening, but continues to be weaker on the R in both hip and core Physical Therapy Plan Next Visit Focus/Plan Next Note Type Treatment Note Next Visit Plan Stabilization training, focus on the R
--- NOTE | 2019-02-24 08:39 | PT.OPDS ---
Current Diagnoses Sacrococcygeal disorders, not elsewhere classified (12/22/18) Pelvic and perineal pain (12/22/18) Strain of muscle, fascia and tendon of the posterior muscle group at thigh level, right thigh, sequela (12/22/18) Visit Care Team Role Provider Type Carlo Ayers MD Primary Care Provider Non-Staff Specialty: Medical Address: [address] [place], [address] Email: Isabel Fletcher CNM Attending Provider Non-Staff Specialty: Nursing Address: [address] [place], [address] Email: Visit Number Visit Number 9 Discharge Summary PT-OP-B Current Condition Start: 11/03/18 10:03 Freq: Status: Active Protocol: Document 11/03/18 10:00 AMB (Rec: 11/04/18 16:18 AMB [email or web address]) Current Condition History of Current Condition Onset Date May 2018 Current Complaints R sided pain with sitting History of Current Condition Ayanna reports that she fell on her side while she was . She ended up needing an emergency because her placenta ruptured , and so wasn't overly concerned about her right sided pain, but it has been present ever since that fall. 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 She points to the pain as being at the ischial tuberosity, worst with bending forward and sitting. Treatment Goals Patient/Caregiver Goals Bend forward to put her baby in the crib without pain. Sit without pain. Return to running. Personal Factors Other Personal Factors That May Effect Pt lives in [place] ( Therapy/Recovery long drive to get to PT). Pt reports long history of neck pain and L shoulder pain with labrum surgery. PT-OP-C Subjective Start: 11/03/18 10:03 Freq: Status: Active Protocol: Document 12/22/18 09:45 AMB (Rec: 12/25/18 14:32 AMB [email or web address]) OP-PT Subjective Patient Comments Patient Comments Pt overall feeling pretty good today, is going to [place] next week and is going to be driving. PT-OP-F Manual Assessment Start: 11/04/18 15:22 Freq: Status: Active Protocol: Document 11/03/18 10:00 AMB (Rec: 11/04/18 15:56 AMB [email or web address]) Manual Assessments Joint Mobility Assessment Joint Mobility Assessment PAs in L4-5-S1 all painful. PT-OP-I Pelvic Floor Start: 11/03/18 10:03 Freq: Status: Active Protocol: Document 12/03/18 09:00 AMB (Rec: 12/03/18 11:14 AMB [email or web address]) Pelvic Floor Assessment Pelvic Clock Pelvic Clock Other Tenderness that radiates to R low back/sacrum with palpation of levator ani and obteratur internus. Tightness on L but no radiation of pain. PT-OP-J Posture/Palpation/Skin Start: 11/03/18 10:03 Freq: Status: Active Protocol: Document 11/03/18 10:00 AMB (Rec: 11/04/18 15:56 AMB [email or web address]) Posture Evaluation Comments Posture Comments In supine R innominant anterior rotated Palpation Assessment Location One Palpation Details Tenderness over bilateral SI joints and sacrum. Pt points to R ischial tuberosity when asked where she has pain but denies pain with palpation. No tenderness over but does have hard lump probably of scar tissue beneath umbilicus. Diastasis recti of 1 finger width below and above umbilicus. PT-OP-K Range of Motion Start: 11/04/18 15:22 Freq: Status: Active Protocol: Document 11/03/18 10:00 AMB (Rec: 11/04/18 15:56 AMB [email or web address]) Lumbar Spine Range of Motion Lumbar Spine Active Degrees Testing Position Standing Flexion 40 Extension 10 Lateral Flexion Left 15 Lateral Flexion Right 15 Comments pain with lumbar flexion and returning from flexion PT-OP-L Special Tests Start: 11/04/18 15:22 Freq: Status: Active Protocol: Document 11/03/18 10:00 AMB (Rec: 11/04/18 15:56 AMB [email or web address]) Special Tests Lumbar Spine Special Tests Stork Test Test Results negative Standing Flexion Test Results positive Hip Special Tests Scour Test Test Results negative SG Test Results positive PT-OP-M Strength Start: 11/04/18 15:22 Freq: Status: Active Protocol: Document 11/03/18 10:00 AMB (Rec: 11/04/18 15:56 AMB [email or web address]) Hip Strength Hip Manual Muscle Testing Right Flexion (L2) 4 Good Extension (S1) 4- Good- Comments pain with resisted hip extension Left Flexion (L2) 4+ Good+ Extension (S1) 4+ Good+ Knee Strength Knee Manual Muscle Testing Right Flexion (S2) 4- Good- Extension (L3) 5 Normal Comments pain with resisted knee flexion Left Flexion (S2) 5 Normal Extension (L3) 5 Normal PT-OP-T Assessment and Plan Start: 11/03/18 10:03 Freq: Status: Active Protocol: Document 02/24/19 08:29 AMB (Rec: 02/24/19 08:38 AMB [email or web address]) Physical Therapy Assessment Goals Three Impairment Strength Short Term Goal (STG) Ayanna will be independent with a HEP for core and pelvic stability. STG Duration MET Two Impairment pain with movement Short Term Goal (STG) Ayanna will walk for 10 minutes with pain of 3/10 or less. STG Duration 4 weeks [employer] Goal (LTG) Ayanna will bend over to put her daughter in her crib with pain of 3/10 or less. LTG Duration 8 weeks One Impairment sitting Short Term Goal (STG) Ayanna will maintain sitting with neutral pelvic tilt for 10 minutes without lumbar support to decrease her pain. STG Duration MET [employer] Goal (LTG) Ayanna will drive for 30 minutes with 3/10 pain or less . LTG Duration 8 weeks Assessment Summary Assessment Ayanna was seen for 9 vistits between November 03 and December 21, and then stopped coming to PT because of lack of childcare. At the time that she stopped coming to PT her pain had reduced significantly, but she continued to have pain and weakness. She was dispensed an SI belt and did have a preliminary HEP for her weakness, so hopefully she has kept up with that and continued to strengthen. Physical Therapy Plan Discharge Physical Therapy Discharge Reasons No Longer Attending PT Discharge Comments Lack of childcare, pt seen 9 visits
== END 2019-02-28 12:09 ==
LOC: PHYS 09:45
PROVIDERS: PCP Family Medicine; Visit Provider Midwife
DX: R10.2 Pelvic and perineal pain (principal); M53.3 Sacrococcygeal disorders, not elsewhere classified; S76.311S Strain of muscle, fascia and tendon of the posterior muscle group at thigh level, right thigh, sequela
CPT/HCPCS: 97110; 97140; 97162